=== PATIENT | male | born 1985 | race Caucasian/White ===

== ENCOUNTER 2024-05-29 20:01 | Inpatient (IN) | payer OTHER ==
[~2024-05-29] VITALS: Ht 177.8 cm; Wt 86.1 kg
[~2024-05-29 20:01] MED LIST: Lactated Ringer's 1,000 ML IV SCH
[2024-05-29] MEDS ORDERED: Diphth,Pertuss(Acell),Tet Vac 0.5 ML VIAL IM ONE (23:00)
[2024-05-29] MEDS ORDERED: Ondansetron HCl 2 MG / ML 2ML Vial IV PRN (23:05)
[2024-05-29] MEDS ORDERED: Naloxone HCl 0.4MG / ML 1ML Vial IV PRN (23:05)
[2024-05-29] MEDS ORDERED: FentaNYL Citrate 50 MCG/ML 2 ML Injection IV PRN (23:10)
[2024-05-29] MEDS ORDERED: OxyCODONE HCL 5 MG TAB PO PRN (23:10)
[2024-05-29] MEDS ORDERED: FLU VACC TS2024-25(6MOS UP)/PF 45 MCG/0.5 ML SYRINGE IM ONE (23:10)
[2024-05-29] MEDS ORDERED: Acetaminophen 325 MG TABLET PO PRN (23:10)
[2024-05-29] MEDS ORDERED: TraMADol HCl 50 MG Tab PO PRN (23:10)
[2024-05-29] MEDS ORDERED: CefTRIAXone Sodium 1,000 MG in NS 100 ML IV SCH (23:37)
[2024-05-29] MEDS ORDERED: Vancomycin HCL 1,500 MG in NS 250 ML IV ONE (23:50)
[2024-05-30] MEDS ORDERED: NS 1,000 ML IV SCH (02:15)
[2024-05-30 04:35] LABS: BASOPHILS ABSOLUTE AUTO 0.02 K/mm3 (0.00-0.23); BASOPHILS PERCENT AUTO 0 % (0-2); EOSINOPHILS ABSOLUTE AUTO 0.08 K/mm3 (0.00-0.68); EOSINOPHILS PERCENT AUTO 1 % (0-6); Hematocrit 36.2 % (37.0-53.0); Hemoglobin 12.8 g/dL (13.5-17.5); IMMATURE GRAN ABSOLUTE AUTO 0.03 K/mm3 (0.00-0.10); IMMATURE GRAN PERCENT AUTO 0 % (0-1); LYMPHOCYTES ABSOLUTE AUTO 1.48 K/mm3 (0.84-5.20); LYMPHOCYTES PERCENT AUTO 17 % (21-46); MONOCYTES ABSOLUTE AUTO 0.96 K/mm3 (0.16-1.47); MONOCYTES PERCENT AUTO 11 % (4-13); Mean Corpuscular HGB 29.4 pg (26.0-34.0); Mean Corpuscular HGB Conc 35.4 g/dL (31.5-36.5); Mean Corpuscular Volume 83 fL (80-100); Mean Platelet Volume 9.3 fL (9.1-12.4); NEUTROPHILS ABSOLUTE AUTO 6.15 K/mm3 (1.96-9.15); NEUTROPHILS PERCENT AUTO 71 % (41-73); Platelet Count 189 K/mm3 (150-400); RDW Coefficient Variation 12.7 % (11.7-14.2); Red Blood Cell Count 4.35 M/mm3 (4.30-5.90); White Blood Cell Count 8.72 K/mm3 (4.00-11.30)
[2024-05-30 05:19] LABS: Albumin/Globulin Ratio 0.9 (0.8-1.8); Bilirubin, Total 0.5 mg/dL (0.1-1.0); Bun/Creatinine Ratio 12.5 (12.0-20.0); Calcium, Blood 8.8 mg/dL (8.5-10.1); Creatinine, Blood 0.8 mg/dL (0.60-1.20); Globulin, Blood 3.4 g/dL (2.2-4.0); Potassium, Blood 3.5 mmol/L (3.5-5.5); Total Protein, Blood 6.4 g/dL (6.4-8.2)
[2024-05-30] MEDS ORDERED: Vancomycin HCL 1,000 MG in NS 250 ML IV SCH (08:00)
[2024-05-30] MEDS ORDERED: Docusate Sodium 100 MG Cap PO SCH (09:00)
[2024-05-30] MEDS ORDERED: Lactobacil 2-S.Thermo-Bifido 1 1 Cap PO SCH (09:00)
[2024-05-30 17:33] VITALS: BP 175/94
--- NOTE | 2024-05-30 18:09 | NUR ---
PATIENT ARRIVAL ADMITTED ABOUT 1714, CALL MADE TO DR. HERNANDEZ FOR CONSULT, CURRENTTLY NPO AND IVF RUNNING. MEDICATED FOR PAIN. R THUMB, SWOLLEN AND RED REDSTREAKING FROM THUMB TO ARMPIT NOTED AND NOTIFIED. OUTLINED WITH PEN AND PHOTOS TAKEN.IV TO RIGHT AC DC'D INTACT. PATIENT STATEDS BOTH IVS IN R AC AND L AC WERE PLACED AT [facility]. PATIENT IS AOX4 IND, VSS, CALL LIGHT IN REACH NPO UNTIL DR BILLINGS.
[2024-05-30 19:26] VITALS: BP 124/92
[2024-05-30 23:26] LABS: Vancomycin, Trough 12.4 ug/mL (5.0-10.0)
[2024-05-31] VITALS (15 sets, daily range): BP systolic 139–169; BP diastolic 89–111
--- NOTE | 2024-05-31 04:18 | NUR ---
SHIFT SUMMARY FARIBA WAS ALERT AND FULLY ORIENTED ON ASSESMENT AND INDEPENDENT IN THE ROOM. PT COMPLAINS OF SEVERE PAIN TO R HAND, MEDICATED PER EMAR. PT NOTES SOME RELIEF WITH PAIN MEDS, AND IS ABLE TO SLEEP. PT KEPT NPO FROM MIDNIGHT. NO ACUTE EVENTS NO NOTED CHANGES TO PT CONDITION.
[2024-05-31] MEDS ORDERED: Lactated Ringer's 1,000 ML IV SCH (07:00)
[2024-05-31] MEDS ORDERED: propofoL 20 ML IV ONE ×2 (07:02→08:10)
[2024-05-31] MEDS ORDERED: Midazolam HCl 1MG / ML 2ML Vial ONE (07:13)
[2024-05-31] MEDS ORDERED: FentaNYL Citrate 50 MCG/ML 2 ML Injection ONE ×5 (07:13→08:11)
[2024-05-31] MEDS ORDERED: Bupivacaine 0.5% W/EPI 1:200000 SDV 30 ML Vial ONE (07:16)
[2024-05-31] MEDS ORDERED: HYDROmorphone HCl/Pf 1MG SYR ONE ×2 (07:30→08:14)
[2024-05-31] MEDS ORDERED: propofoL 40 ML IV ONE (07:32)
[2024-05-31] MEDS ORDERED: Ketorolac Tromethamine 30mg Vial ONE (07:41)
--- NOTE | 2024-05-31 09:19 | NUR ---
post-op PATIENT BACK @ 0905 BP [id number]/98 [id number], REPORTS 8/10 PAIN. BREATHS E/U. DRESSING WITH GAUZE AND COBAN C/D/I.
--- NOTE | 2024-05-31 10:50 | NUR ---
UPDATE PATIENT SETTING IV ALARM OFF AND GETTING OUT OF BED. THIS RN INTO ROOM TO SEE PATIENT HOLDING A GLASS PIPE AND FOIL, AND SYRINGE. THIS RN NOTIFIED CHARGE AND SECURITY WAS CALLED. PATIENT DENIES ANY DRUG USE THIS RN DID JUST MEDICATE WITH 5MG OF OXY, PRIOR TO FINDING. PATIENT WAS TOLD HE HAD TO REMOVE ALL BELONGINGS AND DRUG PARAPHERNALIA. PATIENT STATES "IF MY STUFF GOES I GO" THIS RN TOLD PATIENT HIS RISK OF LEAVING AMA AND POSSIBILITY OF SEPSIS AND . PATIENT STATES UNDERSTANDING AND IS ADAMANT HE IS LEAVING. HEAD TRACK COACH AND THIS RN WITNESS PATIENT SIGN AMA FORM AND IV TAKEN OUT INTACT AND PATIENT GETS DRESSED AND LEAVES.
== END 2024-05-31 10:59 | disposition left against medical advice (07) | DRG 854 ==
LOC: ER 20:01 → SURS 23:03 → ERHOLD 23:03 → SURS 05-30 17:29
PROVIDERS: Emergency Medicine; Orthopaedic Surgery Sports Medicine; ADMIT Student in an Organized Health Care Education/Training Program
PROC: 0JBJ0ZZ Excision of Right Hand Subcutaneous Tissue and Fascia, Open Approach (ICD-10-PCS; principal; 2024-05-31 07:30)
DX: A41.9 Sepsis, unspecified organism (principal); I96 Gangrene, not elsewhere classified; L02.511 Cutaneous abscess of right hand; M65.141 Other infective (teno)synovitis, right hand; I10 Essential (primary) hypertension; E86.0 Dehydration; F15.10 Other stimulant abuse, uncomplicated; F17.200 Nicotine dependence, unspecified, uncomplicated; F11.10 Opioid abuse, uncomplicated; S61.041A Puncture wound with foreign body of right thumb without damage to nail, initial encounter; W26.8XXA Contact with other sharp object(s), not elsewhere classified, initial encounter; Z53.29 Procedure and treatment not carried out because of patient's decision for other reasons; Z88.0 Allergy status to penicillin; Z88.1 Allergy status to other antibiotic agents
CPT/HCPCS: 36415; 80053; 80202; 83735; 85025; 87070; 87075; 87147; 87205; 99285; A9270; J0696; J1171; J1885; J2250; J2405; J2704; J3010; J3370; J7030; J7050; J7120